=== PATIENT | female | born 1985 ===

== ENCOUNTER 2022-10-11 01:59 | Emergency (ER) | payer SELFPAY ==
[2022-10-11] MEDS ORDERED: Activated Charcoal/Water Susp 50 GM/240 ML Tube PO ONE (02:03)
[2022-10-11 02:18] LABS: BASOPHILS ABSOLUTE AUTO 0.02 K/uL (0.02-0.10); BASOPHILS PERCENT AUTO 0.4 % (0.0-0.5); EOSINOPHILS ABSOLUTE AUTO 0.03 K/uL (0.04-0.40); EOSINOPHILS PERCENT AUTO 0.6 % (1.0-5.0); HEMATOCRIT 39.8 % (37.0-47.0); HEMOGLOBIN 13.7 g/dL (11.5-16.5); LYMPHOCYTES ABSOLUTE AUTO 3.02 K/uL (1.50-4.00); LYMPHOCYTES PERCENT AUTO 63.3 % (20.0-40.0); MEAN CORPUSCULAR HEMOGLOBIN 35.3 pg (27.0-32.0); MEAN CORPUSCULAR HGB CONC 34.4 g/dL (31.0-35.0); MEAN CORPUSCULAR VOLUME 103 fL (76-96); MEAN PLATELET VOLUME 10.7 fL (6.0-10.0); MONOCYTES ABSOLUTE AUTO 0.39 K/uL (0.20-0.80); MONOCYTES PERCENT AUTO 8.2 % (3.0-10.0); NEUTROPHILS ABSOLUTE AUTO 1.31 K/uL (2.00-7.50); NEUTROPHILS PERCENT AUTO 27.5 % (45.0-70.0); PLATELET COUNT,PLT 184 K/uL (150-500); RED BLOOD CELL COUNT 3.88 M/uL (3.80-5.80); RED CELL DISTRIBUTION WIDTH 12.1 % (11.0-16.0); WHITE BLOOD CELL COUNT,WBC 4.8 K/uL (4.0-11.0)
[2022-10-11 02:38] LABS: A/G RATIO 0.9 (0.8-2.0); ALANINE AMINOTRANSFERASE,ALT 103 U/L (12-78); ALKALINE PHOSPHATASE 62 U/L (46-116); ANION GAP 15.1 mmol/L (5.0-15.0); ASPARTATE AMNIOTRANSFERASE,AST 140 U/L (15-37); BILIRUBIN TOTAL 0.2 mg/dL (0.0-1.0); BLOOD UREA NITROGEN,BUN 4 mg/dL (8-26); BUN/CREATININE RATIO 4.7 (6-25); CALCIUM 8.6 mg/dL (8.5-10.1); CARBON DIOXIDE,CO2 29.4 mmol/L (21.0-32.0); CHLORIDE,CL 106 mmol/L (98-107); CREATININE 0.85 mg/dL (0.55-1.02); ESTIMATED GFR 90 mL/min (>60); GLUCOSE RANDOM 126 mg/dL (74-100); POTASSIUM,K 3.5 mmol/L (3.5-5.1); PROTEIN TOTAL,TP 8.4 g/dL (6.4-8.2); SODIUM,NA 147 mmol/L (136-145)
[2022-10-11 02:54] LABS: SALICYLATE 1.4 mg/dL (2.8-20.0); TSH ULTRASENSITIVE 1.584 uIU/mL (0.358-3.740)
[2022-10-11] MEDS ORDERED: Sodium Chloride 0.9% 1,000 ML IV SCH (03:00)
[2022-10-11 05:50] LABS: ACETAMINOPHEN 76.9 ug/mL; SALICYLATE 0.9 mg/dL (2.8-20.0)
[2022-10-11 09:03] LABS: APPEARANCE,URINE CLEAR (CLEAR); BILIRUBIN,URINE NEGATIVE (NEGATIVE); COLOR,URINE YELLOW; GLUCOSE,URINE NEGATIVE (NEGATIVE); KETONES,URINE NEGATIVE (NEGATIVE); LEUKOCYTE ESTERASE,URINE SMALL (NEGATIVE); NITRITE,URINE NEGATIVE (NEGATIVE); OCCULT BLOOD,URINE NEGATIVE (NEGATIVE); PROTEIN,URINE NEGATIVE (NEGATIVE); UROBILINOGEN,URINE 0.2 E.U./dL (0.2-1.0)
[2022-10-11 09:07] LABS: AMPHETAMINES SCREEN, URINE NEGATIVE (NEGATIVE); BARBITURATE SCREEN,URINE NEGATIVE (NEGATIVE); BENZODIAZEPINES SCREEN,URINE NEGATIVE (NEGATIVE); METHADONE SCREEN, URINE POSITIVE (NEGATIVE); METHAMPHETAMINES SCREEN, URINE NEGATIVE (NEGATIVE)
[2022-10-11 09:08] LABS: OXYCODONE SCREEN,URINE NEGATIVE (NEGATIVE); THC SCREEN,URINE 50 NG/ML NEGATIVE (NEGATIVE)
[2022-10-11 09:18] LABS: RBC,URINE 0-5 /HPF
[2022-10-11 09:19] LABS: SQUAMOUS EPITHELIAL CELLS,UR FEW /HPF; WBC,URINE 0-5 /HPF
== END 2022-10-11 09:40 | disposition home or self-care (01) ==
LOC: LB.ED 01:59
DX: T39.012A Poisoning by aspirin, intentional self-harm, initial encounter (principal); Z91.013 Allergy to seafood
CPT/HCPCS: 36415; 80053; 80143; 80179; 80307; 81001; 84443; 85025; 93005; 99285; A0425; A0429; A9270-GY; J7030